=== PATIENT | female | born 1950 | race Caucasian/White ===

== ENCOUNTER 2024-02-07 11:55 | Day surgery (SDC) | payer MEDICARE ==
[~2024-02-07] VITALS: Ht 162.6 cm; Wt 75.5 kg
[~2024-02-07 11:55] MED LIST: ALIG4CAP PO; AMIT25TA19 PO; B-12100010 PO; BLAC40CA PO; CIDA500T2 PO; CYCL5TAB; LISI20TA33 PO; LOVA40TA PO; MELO15TA28 PO; MULT-90 PO; OMEP-173 PO; SYNT25TA PO; VENL75CA47 PO; VITA100093 PO
[2024-02-07] MEDS: NS 1,000 ML IV ONE (12:44)
[2024-02-07] MEDS ORDERED: FECAL MICROBIOTA TRANSPLANT PREPARATION 35ML BAG XX ONE (13:00)
[2024-02-07 14:54] VITALS: BP 121/60; O2SAT 98
== END 2024-02-07 14:54 | disposition home or self-care (01) ==
LOC: M OPP 11:55
PROVIDERS: ATTEND Internal Medicine Gastroenterology
DX: K51.419 Inflammatory polyps of colon with unspecified complications (principal); A04.71 Enterocolitis due to Clostridium difficile, recurrent; K64.9 Unspecified hemorrhoids; K57.30 Diverticulosis of large intestine without perforation or abscess without bleeding; G47.30 Sleep apnea, unspecified; Z99.89 Dependence on other enabling machines and devices; E03.9 Hypothyroidism, unspecified; I10 Essential (primary) hypertension; M79.7 Fibromyalgia; Z79.01 Long term (current) use of anticoagulants; Z79.02 Long term (current) use of antithrombotics/antiplatelets; Z79.1 Long term (current) use of non-steroidal anti-inflammatories (NSAID); Z79.890 Hormone replacement therapy; Z79.899 Other long term (current) drug therapy; Z79.891 Long term (current) use of opiate analgesic; Z88.1 Allergy status to other antibiotic agents; Z88.5 Allergy status to narcotic agent; Z88.8 Allergy status to other drugs, medicaments and biological substances
CPT/HCPCS: 45380; 88305; G0455